=== PATIENT | male | born 1955 | race Caucasian/White ===

== ENCOUNTER 2019-01-23 08:56 | Day surgery (SDC) | payer OTHER ==
[~2019-01-23] VITALS: Ht 190.5 cm; Wt 103.8 kg
[2019-01-23] MEDS ORDERED: ASPI-496 PO (09:31)
[2019-01-23] MEDS ORDERED: HYDR25TA6 PO (09:31)
[2019-01-23 09:34] VITALS: BP 143/81
[2019-01-23] MEDS ORDERED: LACTATED RINGERS 1,000 ML IV SCH (09:56)
[2019-01-23] MEDS ORDERED: FENTANYL PF 100 MCG/2ML IV PRN (11:00)
[2019-01-23] MEDS ORDERED: ONDANSETRON 2MG/ML, 2ML IV PRN (11:00)
[2019-01-23] MEDS ORDERED: FENTANYL PF 100 MCG/2ML ONE (11:11)
[2019-01-23] MEDS ORDERED: CIPROFLOXACIN/PMX 400MG/200ML 200 ML ONE (12:43)
[2019-01-23] MEDS ORDERED: METRONIDAZOLE PMX 500MG/100ML 100 ML ONE (12:44)
[2019-01-23] MEDS ORDERED: ROCURONIUM 10MG/ML,5ML ONE (12:48)
[2019-01-23] MEDS ORDERED: SUCCINYLCHOLINE 20 MG/ML, 10ML ONE (12:48)
[2019-01-23] MEDS ORDERED: ONDANSETRON 2MG/ML, 2ML ONE (12:48)
[2019-01-23] MEDS ORDERED: PROPOFOL 10 MG/ML, 20ML ONE (12:48)
[2019-01-23] MEDS ORDERED: NEOSTIGMINE 1 MG/ML, 10ML ONE (12:48)
[2019-01-23] MEDS ORDERED: CEFAZOLIN 1,000 MG ONE (12:48)
[2019-01-23] MEDS ORDERED: DEXAMETHASONE 4 MG/ML, 1ML ONE (12:48)
[2019-01-23] MEDS ORDERED: GLYCOPYRROLATE 0.2MG/1ML, 5ML ONE (12:48)
[2019-01-23] MEDS ORDERED: INDOMETHACIN 50 MG SUPP.RECT ONE ×2 (13:07→13:10)
[2019-01-23] MEDS ORDERED: PROPOFOL 50 ML ONE ×2 (13:52→15:17)
== END 2019-01-23 15:40 | disposition home or self-care (01) ==
LOC: OUT 08:56
PROVIDERS: ATTEND Internal Medicine Geriatric Medicine
DX: C25.9 Malignant neoplasm of pancreas, unspecified (principal); K83.1 Obstruction of bile duct; K83.8 Other specified diseases of biliary tract; I10 Essential (primary) hypertension; I45.10 Unspecified right bundle-branch block; E66.9 Obesity, unspecified; Z68.30 Body mass index [BMI] 30.0-30.9, adult; Z72.89 Other problems related to lifestyle; Z79.899 Other long term (current) drug therapy; Z88.2 Allergy status to sulfonamides; Z98.890 Other specified postprocedural states
CPT/HCPCS: 43242; 43274; 74330; 88172; 88173; 88177; 88307; C1769; C2625; J0330; J0744; J1100; J2405; J2704; J3010; J7120; J0690; J2710

== ENCOUNTER 2019-02-01 02:06 | Emergency (ER) | payer MEDICARE, OTHER ==
[~2019-02-01] VITALS: Ht 190.5 cm; Wt 115.0 kg
[~2019-02-01 02:06] MED LIST: ASPI-496 PO; CIPR500T3 PO; HYDR25TA6 PO; METR500T PO
[2019-02-01] MEDS ORDERED: SODIUM CHLORIDE FLUSH 10ML SYR IVF ONE (02:30)
[2019-02-01] MEDS ORDERED: ONDANSETRON 2MG/ML, 2ML IVPush ONE (02:30)
--- NOTE | 2019-02-01 02:30 | NUR ---
Pt c/o uncontrolled pain, recent d/c w/ dx pancreatic cancer. Family at bedside. Pt is alert, speaks in full complete sentneces, no medication prior to arrival. placed on monitor, vss.
[2019-02-01] MEDS ORDERED: HYDROmorphone 2 MG/ML, 1ML ONE ×2 (02:31→04:07)
[2019-02-01] MEDS ORDERED: ONDANSETRON 2MG/ML, 2ML ONE (02:31)
[2019-02-01] MEDS: HYDROmorphone 2 MG/ML, 1ML IVPush PRN ×2 (02:42→04:12)
--- NOTE | 2019-02-01 02:44 | NUR ---
PIV placed, lab at bedside, medicated for pain and nausea per MD orders.
--- NOTE | 2019-02-01 02:48 | NUR ---
O2 saturation drop 88% RA with pain medication, placed on 2lpm via NC, sats wdl.
[2019-02-01 03:03] LABS: MEAN CORPUSCULAR HEMOGLOBIN 29.8 pg (27.5-34.5); MEAN CORPUSCULAR VOLUME 90.2 fL (81-97); PLATELET COUNT 268 x10^3/uL (130-400); RED BLOOD COUNT 2.99 x10^6/uL (4.38-5.82)
[2019-02-01 03:04] LABS: ALANINE AMINOTRANSFERASE 69 U/L (12-78); ALBUMIN 1.7 g/dL (3.4-5.0); ANION GAP 9 mmol/L (5-15); CALCIUM 8.1 mg/dL (8.5-10.1); CHLORIDE 104 mmol/L (98-107); CREATININE 0.78 mg/dL (0.7-1.3)
[2019-02-01 03:07] LABS: ALKALINE PHOSPHATASE 202 U/L (45-117); BILIRUBIN,TOTAL 5.1 mg/dL (0.2-1.0); TOTAL PROTEIN 5.8 g/dL (6.4-8.2)
[2019-02-01 03:22] LABS: CULTURE INDICATED? YES; MICROSCOPIC INDICATED
[2019-02-01 03:48] LABS: <PLATELET ESTIMATE> ADEQUATE; <PLT MORPHOLOGY> NORMAL PLT MORPH; BASOPHILS # (AUTO) 0.04 x10^3/uL (0-0.1); BASOPHILS % (AUTO) 0 % (0-1); EOSINOPHILS # (AUTO) 0.26 x10^3/uL (0-0.4); EOSINOPHILS % (AUTO) 2 % (1-7); LYMPHOCYTES # (AUTO) 1.45 x10^3/uL (1-3.4); LYMPHOCYTES % (AUTO) 12 % (22-44); MD MORPH REVIEW ONLY; MONOCYTES # (AUTO) 1.24 x10^3/uL (0.2-0.8); MONOCYTES % (AUTO) 10 % (2-9); NEUTROPHILS % (AUTO) 76 % (42-75); TOXIC GRAN 1+
[2019-02-01 03:53] LABS: ANISOCYTOSIS 1+; HYPOCHROMIA 1+; POLYCHROMASIA 1+
[2019-02-01 03:57] VITALS: BP 144/78
[2019-02-01] MEDS ORDERED: OXYcodone/APAP 10/325MG TABLET PO ONE (04:00)
[2019-02-01] MEDS ORDERED: CEFDINIR 300 MG CAPSULE PO ONE (04:00)
[2019-02-01] MEDS ORDERED: OXYcodone/APAP 10/325MG TABLET ONE (04:07)
[2019-02-01] MEDS ORDERED: CEFDINIR 300 MG CAPSULE ONE (04:26)
--- NOTE | 2019-02-01 04:31 | NUR ---
Pt medicated for pain, PO abx given per eMAR, education provided. vitals stable, waiting for results.
== END 2019-02-01 05:49 | disposition home or self-care (01) ==
LOC: ED 05:44
DX: J15.9 Unspecified bacterial pneumonia (principal); C25.9 Malignant neoplasm of pancreas, unspecified; D64.9 Anemia, unspecified; I10 Essential (primary) hypertension; Z87.891 Personal history of nicotine dependence
CPT/HCPCS: 36415; 71045; 80053; 81001; 83605; 84145; 85025; 87040; 87086; 93005; 96374; 96376; 99284; J1170

== ENCOUNTER 2019-02-03 10:41 | Inpatient (IN) | payer OTHER, MEDICARE ==
[~2019-02-03] VITALS: Ht 188 cm; Wt 104.2 kg
--- NOTE | 2019-02-03 10:57 | NUR ---
MARV SOLORZANO BS FOR EXAM. PER FIANCE: DIFFICULTY BREATHING, WORSENED LAST NOC. RECENTLY DX'S W/ PANCREATIC CA. RECENTLY DC'D FROM [facility] ON 01/31/19. HX: STENT IN PANCREAS & BILE DUCT, PANCREATITIS, PNEUMONIA. PT A&OX4, RESP EVEN & UNLABORED, SPEECH CLEAR, SKIN COOL & DRY, ABLE TO SPEAK IN COMPLETE SENTENCES. PEDAL EDEMA NOTED - STARTED 3 DAYS AGO; PEDAL PULSES DIMINISHED. PET SCAN SCHEDULED FOR 02/08/19.
[2019-02-03] MEDS ORDERED: ONDA4TAB7 PO (11:10)
[2019-02-03] MEDS ORDERED: HYDR1TAB13 PO (11:10)
[2019-02-03 11:46] LABS: ALANINE AMINOTRANSFERASE 109 U/L (12-78); ALBUMIN 2.1 g/dL (3.4-5.0); ANION GAP 8 mmol/L (5-15); CALCIUM 8.6 mg/dL (8.5-10.1); CHLORIDE 103 mmol/L (98-107)
[2019-02-03 11:49] LABS: MEAN CORPUSCULAR HEMOGLOBIN 30.2 pg (27.5-34.5); MEAN CORPUSCULAR HGB CONC 33.4 g/dL (33.2-36.2); MEAN CORPUSCULAR VOLUME 90.4 fL (81-97); MEAN PLATELET VOLUME 7.4 fL (7.4-10.4); PLATELET COUNT 358 x10^3/uL (130-400); RED BLOOD COUNT 3.21 x10^6/uL (4.38-5.82); RED CELL DISTRIBUTION WIDTH 15.7 % (9.4-14.8)
[2019-02-03 11:51] LABS: ALKALINE PHOSPHATASE 228 U/L (45-117); BILIRUBIN,TOTAL 4.2 mg/dL (0.2-1.0); TOTAL PROTEIN 6.3 g/dL (6.4-8.2); TROPONIN I < 0.015 ng/mL (0.000-0.045)
[2019-02-03 12:09] LABS: BASOPHILS # (AUTO) 0.04 x10^3/uL (0-0.1); BASOPHILS % (AUTO) 0 % (0-1); EOSINOPHILS # (AUTO) 0.27 x10^3/uL (0-0.4); EOSINOPHILS % (AUTO) 2 % (1-7); LYMPHOCYTES # (AUTO) 1.71 x10^3/uL (1-3.4); LYMPHOCYTES % (AUTO) 15 % (22-44); MD SCAN; MONOCYTES % (AUTO) 10 % (2-9); NEUTROPHILS # (AUTO) 8.03 x10^3/uL (1.8-6.8); NEUTROPHILS % (AUTO) 72 % (42-75)
--- NOTE | 2019-02-03 12:41 | NUR ---
AMBULATORY TO BR W/ STEADY GAIT, ACCOMPANIED BY HVAC OPERATIONS TECHNICIAN. PT TO GO TO CT NEXT.
[2019-02-03] MEDS ORDERED: OMNIPAQUE 350 MG/ML, 100ML BOTTLE ONE (12:56)
[2019-02-03] MEDS ORDERED: OXYcodone/APAP 10/325MG TABLET PO ONE (13:30)
[2019-02-03] MEDS ORDERED: SODIUM CHLORIDE FLUSH 10ML SYR IVF PRN (14:00)
--- NOTE | 2019-02-03 14:15 | NUR ---
PT SITTING ON SIDE OF BED, SPEAKING W/ FIANCE. HOSPITAL PHYSICIAN BS
--- NOTE | 2019-02-03 14:18 | NUR ---
U/S AND LAB IN ROOM
[2019-02-03] MEDS ORDERED: PROMETHAZINE 25 MG/ML, 1ML IM PRN (14:30)
[2019-02-03] MEDS ORDERED: ONDANSETRON 2MG/ML, 2ML IVPush PRN (14:30)
[2019-02-03] MEDS ORDERED: MORPHINE SULFATE 4 MG/ML, 1ML IVPush PRN (14:30)
[2019-02-03] MEDS ORDERED: LEVOFLOXACIN/PMX 750MG/150ML 150 ML IV SCH (14:30)
--- NOTE | 2019-02-03 14:37 | NUR ---
KATHY ADMITS THAT PT TOOK OWN MEDS: VICODIN AND FLAGYL, BOTH AT 1300. ADVISED PT & KATHY NOT TO TAKE OWN MEDS UPSTAIRS UNLESS OTHERWISE INSTRUCTED; UNDERSTANDING VERBALIZED.
--- NOTE | 2019-02-03 14:43 | NUR ---
PT REPORT TO BRANT MONTEMAYOR FOR ROOM [id number]
[2019-02-03 15:06] LABS: TROPONIN I < 0.015 ng/mL (0.000-0.045)
[2019-02-03 16:03] VITALS: BP 134/79
[2019-02-03] MEDS: GUAIFENESIN 200 MG TABLET PO SCH ×2 (17:59→21:38)
[2019-02-03] MEDS: FUROSEMIDE 20 MG/2 ML IV SCH (18:00)
[2019-02-03] MEDS: OXYcodone IR 5MG TABLET PO PRN (18:02)
[2019-02-03] MEDS: HEPARIN 5,000 UNITS/ML, 1ML SQ SCH (18:07)
[2019-02-03 20:35] LABS: TROPONIN I < 0.015 ng/mL (0.000-0.045)
[2019-02-03 21:34] VITALS: BP 122/73
[2019-02-04] MEDS: OXYcodone IR 5MG TABLET PO PRN ×2 (00:07→06:16)
[2019-02-04 02:14] VITALS: BP 117/65
[2019-02-04] MEDS: HEPARIN 5,000 UNITS/ML, 1ML SQ SCH ×2 (02:14→10:10)
[2019-02-04] MEDS: GUAIFENESIN 200 MG TABLET PO SCH ×2 (06:15→11:11)
[2019-02-04 06:25] LABS: BASOPHILS # (AUTO) 0.03 x10^3/uL (0-0.1); BASOPHILS % (AUTO) 0 % (0-1); EOSINOPHILS # (AUTO) 0.21 x10^3/uL (0-0.4); EOSINOPHILS % (AUTO) 2 % (1-7); LYMPHOCYTES # (AUTO) 1.87 x10^3/uL (1-3.4); LYMPHOCYTES % (AUTO) 20 % (22-44); MD NO; MEAN CORPUSCULAR HGB CONC 33.1 g/dL (33.2-36.2); MEAN CORPUSCULAR VOLUME 90.9 fL (81-97); MEAN PLATELET VOLUME 7.1 fL (7.4-10.4); MONOCYTES % (AUTO) 11 % (2-9); NEUTROPHILS # (AUTO) 6.21 x10^3/uL (1.8-6.8); NEUTROPHILS % (AUTO) 67 % (42-75); PLATELET COUNT 342 x10^3/uL (130-400); RED CELL DISTRIBUTION WIDTH 15.9 % (9.4-14.8)
[2019-02-04 06:34] LABS: CHLORIDE 104 mmol/L (98-107)
[2019-02-04 06:58] LABS: ALANINE AMINOTRANSFERASE 111 U/L (12-78); ALBUMIN 1.9 g/dL (3.4-5.0); ALKALINE PHOSPHATASE 202 U/L (45-117); ANION GAP 7 mmol/L (5-15); BILIRUBIN,TOTAL 3.7 mg/dL (0.2-1.0); CALCIUM 8.6 mg/dL (8.5-10.1); TOTAL PROTEIN 6.1 g/dL (6.4-8.2)
[2019-02-04] MEDS ORDERED: OXYcodone IR 5MG TABLET PO PRN (09:30)
[2019-02-04] MEDS ORDERED: ACETAMINOPHEN 325 MG TABLET PO PRN (09:30)
[2019-02-04 10:00] VITALS: BP 120/78
[2019-02-04] MEDS: FUROSEMIDE 20 MG/2 ML IV SCH (10:10)
[2019-02-04 11:01] VITALS: BP 120/78
[2019-02-04] MEDS ORDERED: FURO40TA6 PO (12:54)
[2019-02-04] MEDS ORDERED: POTA20PA25 PO (12:56)
[2019-02-04 13:55] VITALS: BP 101/65
== END 2019-02-04 15:05 | disposition home or self-care (01) | DRG 193 ==
LOC: ED 13:20 → EDIP 14:05 → 4EST 15:40
PROVIDERS: ADMIT Internal Medicine; ATTEND Internal Medicine
DX: J15.9 Unspecified bacterial pneumonia (principal); J96.01 Acute respiratory failure with hypoxia; D64.9 Anemia, unspecified; E88.09 Other disorders of plasma-protein metabolism, not elsewhere classified; I10 Essential (primary) hypertension; Z85.07 Personal history of malignant neoplasm of pancreas; Z88.2 Allergy status to sulfonamides
CPT/HCPCS: 36415; 71045; 71275; 80053; 83690; 83735; 83880; 84443; 84484; 85025; 86301; 87040; 93005; 93970; 96374; 99285; G0378; J1644; J1956; Q9967; J1940

== ENCOUNTER 2019-02-08 08:44 | Outpatient (CLI) | payer MEDICARE, OTHER | END 2019-02-08 23:59 | disposition home or self-care (01) | LOC: PETCFH 08:44 | PROVIDERS: ATTEND Internal Medicine | DX: C25.9 Malignant neoplasm of pancreas, unspecified (principal) | CPT/HCPCS: 78815; A9552 ==

== ENCOUNTER 2019-07-24 12:30 | Day surgery (SDC) | payer OTHER, MEDICARE ==
[~2019-07-24] VITALS: Ht 188 cm; Wt 113.7 kg
[~2019-07-24 12:30] MED LIST changes: +FURO40TA6 PO; +HYDR1TAB13 PO; +ONDA4TAB7 PO; +POTA20PA25 PO
[2019-07-24] MEDS ORDERED: LACTATED RINGERS 1,000 ML IV SCH (12:48)
[2019-07-24 12:50] VITALS: BP 142/77
[2019-07-24] MEDS ORDERED: HYDR25TA6 PO (12:55)
[2019-07-24 13:31] LABS: ALANINE AMINOTRANSFERASE 51 U/L (12-78); ALBUMIN 3.3 g/dL (3.4-5.0); ANION GAP 6 mmol/L (5-15); CALCIUM 8.7 mg/dL (8.5-10.1); CHLORIDE 110 mmol/L (98-107); CREATININE 0.78 mg/dL (0.7-1.3)
[2019-07-24 13:34] LABS: ALKALINE PHOSPHATASE 93 U/L (45-117); BILIRUBIN,TOTAL 0.6 mg/dL (0.2-1.0); TOTAL PROTEIN 6.7 g/dL (6.4-8.2)
[2019-07-24] MEDS ORDERED: FENTANYL PF 100 MCG/2ML ONE (13:41)
[2019-07-24] MEDS ORDERED: ROCURONIUM 10MG/ML,5ML ONE ×2 (13:50→14:26)
[2019-07-24] MEDS ORDERED: DEXAMETHASONE 4 MG/ML, 1ML ONE (14:26)
[2019-07-24] MEDS ORDERED: SUCCINYLCHOLINE 20 MG/ML, 10ML ONE (14:26)
[2019-07-24] MEDS ORDERED: GLYCOPYRROLATE 0.2MG/1ML, 5ML ONE (14:26)
[2019-07-24] MEDS ORDERED: NEOSTIGMINE 1 MG/ML, 10ML ONE (14:26)
[2019-07-24] MEDS ORDERED: CEFAZOLIN 1,000 MG ONE (14:26)
[2019-07-24] MEDS ORDERED: PROPOFOL 10 MG/ML, 20ML ONE (14:26)
[2019-07-24] MEDS ORDERED: ONDANSETRON 2MG/ML, 2ML ONE (14:26)
[2019-07-24] MEDS ORDERED: OMNIPAQUE 350 MG/ML, 50 ML BOTTLE ONE (14:33)
== END 2019-07-24 16:00 | disposition home or self-care (01) ==
LOC: OUT 12:30
PROVIDERS: ATTEND Internal Medicine Geriatric Medicine
DX: Z46.59 Encounter for fitting and adjustment of other gastrointestinal appliance and device (principal); C25.9 Malignant neoplasm of pancreas, unspecified; I10 Essential (primary) hypertension; Z88.2 Allergy status to sulfonamides
CPT/HCPCS: 36415; 43264; 43276; 74328; 80053; 93005; C1769; C1894; C2625; J0330; J0690; J1100; J2405; J2704; J3010; J7120; Q9967; J2710